=== PATIENT | male | born 1950 | race Caucasian/White ===

== ENCOUNTER 2020-02-10 07:19 | Inpatient (IN) | payer OTHER ==
[~2020-02-10] VITALS: Ht 180.3 cm; Wt 74.6 kg
[2020-02-10] MEDS ORDERED: SODIUM CHLORIDE 0.9% 1,000 ML IV ONE (07:31)
[2020-02-10] MEDS ORDERED: ASPirin 81 mg TAB PO ONE (07:45)
[2020-02-10] MEDS ORDERED: MORPHINE SULF INJ 2 MG/ML SYRINGE 1ML IV ONE (08:45)
[2020-02-10] MEDS ORDERED: ONDANSETRON HCL 4 MG/2 ML VIAL IV ONE (08:45)
[2020-02-10 09:01] LABS: Basophils # (auto) 0.1 10 ^3/uL (0-0.2); Eosinophils # (auto) 0.1 10 ^3/uL (0-0.8); Eosinophils % (auto) 1.2 % (0.0-7.0); Hematocrit 43.7 % (41.0-53.0); Hemoglobin 15.3 g/dL (13.5-17.5); Lymphocytes # (auto) 1.3 10 ^3/uL (0.4-5.4); Lymphocytes % (auto) 18.5 % (10.0-50.0); Mean Corpuscular Hemoglobin 32.4 pg (28.0-32.0); Mean Corpuscular Hgb Conc. 34.9 g/dL (32.0-36.0); Mean Corpuscular Volume 92.8 fL (80.0-100.0); Monocytes # (auto) 0.7 10 ^3/uL (0-1.3); Neutrophils # (auto) 4.9 10 ^3/uL (1.6-8.6); Neutrophils % (auto) 69.3 % (37.0-80.0); Platelet Count (auto) 221 10^3/uL (140-450); Red Blood Cells 4.71 10^6/uL (4.5-5.90); Red Cell Distribution Width 13.5 % (11.8-14.3); White Blood Cell 7.1 10^3/uL (4.4-10.8)
[2020-02-10 09:16] LABS: INR 1.23 (0.9-1.15); Partial Thromboplastin Time 27.5 sec (23.64-32.05)
[2020-02-10 09:18] LABS: Albumin 3.7 g/dL (3.4-5.0); Anion Gap 6 (5-15); Blood Urea Nitrogen 12 mg/dL (7-18); Calcium 8.3 mg/dL (8.5-10.1); Carbon Dioxide 27 mmol/L (21-32); Chloride 100 mmol/L (98-107); Glucose 100 mg/dL (74-106); Potassium 3.3 mmol/L (3.5-5.1); Sodium 133 mmol/L (136-145)
[2020-02-10 09:23] LABS: Alanine Aminotransferase 25 U/L (16-61); Alkaline Phosphatase 98 U/L (45-117); Aspartate Aminotransferase 15 U/L (15-37); BUN/Creatinine Ratio 20.3; Bilirubin, Total 0.5 mg/dL (0.2-1.0); GFR African American 176 mL/min; GFR Non-African American 146 mL/min; Total Protein 7.2 g/dL (6.4-8.2)
[2020-02-10] MEDS ORDERED: POTASSIUM EFFERVESENT TAB 25 MEQ PO ONE (10:00)
[2020-02-10] MEDS ORDERED: NICOTINE 14 MG/24HR TOPICAL PATCH TD ONE (10:15)
[2020-02-10 11:14] LABS: Urine Bacteria NONE SEEN /hpf (None Seen); Urine Blood 1+ /uL (Negative); Urine Mucus FEW (None Seen); Urine WBC 4 /hpf (0 - 3)
[2020-02-10] MEDS ORDERED: KETOROLAC TROMETH 30 MG/ML 1ML VIAL IV ONE (13:45)
[2020-02-10] MEDS ORDERED: guaiFENesin-DM 100/10mg/5ml SYR PO PRN (14:15)
[2020-02-10] MEDS ORDERED: ONDANSETRON HCL 4 MG/2 ML VIAL IV PRN (14:15)
[2020-02-10] MEDS ORDERED: NITROGLYCERIN 0.4 MG SL TAB SL PRN (14:15)
[2020-02-10] MEDS ORDERED: ACETAMINOPHEN 325 MG TAB PO PRN (14:15)
[2020-02-10] MEDS ORDERED: MORPHINE SULF INJ 2 MG/ML SYRINGE 1ML IV PRN (14:15)
--- NOTE | 2020-02-10 15:58 | NUR ---
REGARDING D-DIMER: PAGED Kajal KENNY REGARDING D-DIMER PER COMMUNICATION ORDER.
[2020-02-10 16:46] VITALS: BP 124/75
[2020-02-10] MEDS ORDERED: LISI10TA6 PO (17:33)
[2020-02-10] MEDS ORDERED: LEVE100012 PO (17:33)
[2020-02-10] MEDS ORDERED: PANT40TA2 PO (17:33)
[2020-02-10] MEDS ORDERED: METO25TA93 PO (17:33)
[2020-02-10] MEDS ORDERED: TAMS0.4C36 PO (17:33)
[2020-02-10] MEDS ORDERED: CLOP75TA28 PO (17:33)
[2020-02-10] MEDS ORDERED: PHE100C PO (17:33)
[2020-02-10] MEDS ORDERED: GABA100C PO (17:33)
--- NOTE | 2020-02-10 17:36 | NUR ---
ARRIVAL NOTE: PATIENT TRANSFERRED WHEELCHAIR. NO S/S OF DISTRESS NOTED AT THIS TIME. PATIENT ON TELE MONITOR #3 RUNNING SINUS BRADYCARDIA. NO S/S OF DISTRESS NOTED AT THIS TIME. DENIES ANY PAIN. NO COUGH NOTED AT THIS TIME. ON ROOM AIR WITH OXYGEN SATURATIONS AT 95%. BED IN LOWEST LOCKED POSITION WITH FALL AND SEIZURE PRECAUTIONS IN PLACE. SIDE RAILS UP X2. INSTRUCTED PATIENT TO STAY NPO FOR PENDING CT ANGIO OF CHEST. VERBALIZED UNDERSTANDING. WILL CONTINUE CARE.
[2020-02-10] MEDS ORDERED: PNEUMOCOCCAL VACC POLYS 25 MCG/0.5 ML VIAL IM ONE (17:45)
--- NOTE | 2020-02-10 18:02 | NUR ---
SPOKE TO SET UP MECHANIC CR[employer]SEMBLY MACHINE REGARDING CT ANGIO. STATED WILL CALL BACK TO SEE IF IT WILL BE DONE TODAY.
--- NOTE | 2020-02-10 18:02 | NUR ---
SIXTO KENNY REGARDING PATIENTS HOME MEDS. AWAITING CALL BACK.
--- NOTE | 2020-02-10 18:11 | NUR ---
CALLED AND GAVE REPORT TO MARCI GOTTI. ALL QUESTIONS ANSWERED.
--- NOTE | 2020-02-10 18:21 | NUR ---
PATIENT TRANSPORTED TO ROOM 277B BY JESSICA MUNGUIA. NO S/S OF DISTRESS NOTED AT THIS TIME. TELE MONITOR IN PLACE.
[2020-02-10] MEDS ORDERED: IOHEXOL 350 MG/ML 100ML IJ ONE (18:38)
[2020-02-10] MEDS: MORPHINE SULF INJ 2 MG/ML SYRINGE 1ML IV PRN (18:45)
[2020-02-10] MEDS ORDERED: LORazepam 2MG/ML-1ML VIAL IV PRN (18:45)
[2020-02-10] MEDS: levETIRAcetam 500 MG TAB PO SCH ×2 (18:45→22:29)
[2020-02-10] MEDS: HYDROcodone-ACET 5/325MG TAB PO PRN (21:14)
[2020-02-10 22:00] VITALS: BP 114/77
[2020-02-10] MEDS: PHENYTOIN SODIUM 100 MG CAP PO SCH (22:30)
[2020-02-10] MEDS: METOPROLOL SUCCINATE XL 50 MG TAB PO SCH (22:30)
[2020-02-10] MEDS: GABAPENTIN 100 MG CAP PO SCH (22:30)
[2020-02-11] MEDS: MORPHINE SULF INJ 2 MG/ML SYRINGE 1ML IV PRN ×2 (00:26→07:31)
[2020-02-11] MEDS: HYDROcodone-ACET 5/325MG TAB PO PRN (04:43)
[2020-02-11 05:00] VITALS: BP 127/65
[2020-02-11] MEDS: GABAPENTIN 100 MG CAP PO SCH (06:19)
[2020-02-11] MEDS: PHENYTOIN SODIUM 100 MG CAP PO SCH ×2 (06:19→14:32)
--- NOTE | 2020-02-11 07:30 | NUR ---
Opening Shift Note Assumed care of patient, awake and alert. No S/S of distress/SOB or pain. Instructed on POC and to call for assist PRN, will continue to monitor for changes Q1hr and PRN.
[2020-02-11 08:00] VITALS: BP 117/62
[2020-02-11 09:00] VITALS: BP 117/62
[2020-02-11] MEDS ORDERED: LISINOPRIL 10 MG TAB PO SCH (10:00)
[2020-02-11] MEDS ORDERED: CLOPIDOGREL BISULFATE 75 MG TAB PO SCH (10:00)
[2020-02-11] MEDS ORDERED: PANTOPRAZOLE 40 MG TAB PO SCH (10:00)
[2020-02-11] MEDS ORDERED: GABA300C10 PO (10:06)
[2020-02-11] MEDS: levETIRAcetam 500 MG TAB PO SCH (10:14)
[2020-02-11] MEDS: METOPROLOL SUCCINATE XL 50 MG TAB PO SCH (10:16)
--- NOTE | 2020-02-11 10:19 | NUR ---
DR. CARDONA PAGED FOR DISCHARGE CLEARANCE. AWAITING CALL BACK.
--- NOTE | 2020-02-11 11:25 | NUR ---
DR. CARDONA AT BEDSIDE. AWAITING CARDIAC CLEARANCE FOR DISCHARGE.
[2020-02-11] MEDS ORDERED: NITR1SPR TL ×2 (13:40→13:41)
[2020-02-11] MEDS ORDERED: RANO500T PO (13:42)
[2020-02-11] MEDS ORDERED: GABAPENTIN 300 MG CAP PO SCH (14:00)
[2020-02-11 14:37] VITALS: BP 113/59
--- NOTE | 2020-02-11 15:50 | NUR ---
Discharge instructions given as ordered. Encourage to follow up with PMD as instructed. All questions and concerns addressed. Patient verbalized understanding. Medication reconciliation form completed and needed vaccines given. IV removed with catheter intact, pressure dressing applied. Telemetry unit returned to ICU. Patient taken to vehicle via wheelchair with all personal belongings, accompanied by staff and family member. No distress noted at time of departure.
[2020-02-11] MEDS ORDERED: TAMSULOSIN HYDROCHLORIDE 0.4 MG CAP PO SCH (18:00)
[2020-02-11] MEDS ORDERED: RANOLAZINE ER 500 MG TAB PO SCH (22:00)
== END 2020-02-11 15:50 | disposition home health service (06) | DRG 313 ==
LOC: EDBD 07:19 → ER 07:19 → TELE 07:20 → TELE-EAST 16:41 → TELE-WESTW 18:44
PROVIDERS: ADMIT Internal Medicine; ATTEND Internal Medicine
DX: R07.89 Other chest pain (principal); G62.9 Polyneuropathy, unspecified; K21.9 Gastro-esophageal reflux disease without esophagitis; G40.909 Epilepsy, unspecified, not intractable, without status epilepticus; I11.0 Hypertensive heart disease with heart failure; I73.9 Peripheral vascular disease, unspecified; I25.119 Atherosclerotic heart disease of native coronary artery with unspecified angina pectoris; E87.6 Hypokalemia; I50.9 Heart failure, unspecified; J44.9 Chronic obstructive pulmonary disease, unspecified; N40.0 Benign prostatic hyperplasia without lower urinary tract symptoms; Z82.49 Family history of ischemic heart disease and other diseases of the circulatory system; Z86.73 Personal history of transient ischemic attack (TIA), and cerebral infarction without residual deficits; I25.2 Old myocardial infarction; Z95.5 Presence of coronary angioplasty implant and graft; Z83.3 Family history of diabetes mellitus; Z79.899 Other long term (current) drug therapy; Z03.818 Encounter for observation for suspected exposure to other biological agents ruled out
CPT/HCPCS: 36415; 71045; 71275; 80053; 81001; 83735; 83880; 84443; 84484; 85025; 85379; 85610; 85730; 87070; 87081; 87804; 87880; 93005; 93306; 93970; G0378; J1885; J2405